=== PATIENT | male | born 1970 | race African-American/Black ===

== ENCOUNTER 2019-02-09 18:49 | Emergency (ER) | payer OTHER ==
--- NOTE | 2019-02-09 20:15 | ER Document Report ---
ED Medical Screen (RME) - General Chief Complaint: Abscess Stated Complaint: BACK PAIN Time Seen by Provider: 02/09/19 20:10 Mode of Arrival: Ambulatory Information source: Patient TRAVEL OUTSIDE OF THE [place] IN LAST 30 DAYS: No - HPI Patient complains to provider of: rectal pain Notes: 02/09/19 20:14 Patient here with complaints of rectal pain. The patient states that he does have a history of hemorrhoids. He had a bowel movement this morning and states he has had some significant pain in his rectal area since. States that he feels like this tender area has been draining some purulent drainage. No blood. No fever. No nausea, vomiting, diarrhea. No abdominal pain. Exam No abdominal tenderness. No distress. Nontoxic-appearing. Difficult to fully examined in triage, but the patient is noted to have a tender mass in the rectal area. Differentials including thrombosed hemorrhoid versus abscess. Plan CBC, CMP. Patient will need better evaluation of this rectal mass in a private room in the back to determine if I&D is needed at this time. An initial examination was made on the patient as part of the triage process, and it was determined a more comprehensive evaluation was necessary. Initial labs were ordered and patient was transferred to another provider in the ED who assumed care and finished evaluation and plan. - Related Data Allergies/Adverse Reactions: WASP Allergy (Uncoded 02/09/19 18:51) Physical Exam - Vital signs Vitals: Temp Pulse Resp BP Pulse Ox 98.3 F 95 16 147/90 H 95 02/09/19 19:17 02/09/19 19:17 02/09/19 19:17 02/09/19 19:17 02/09/19 19:17 Course - Vital Signs Vital signs: Temp Pulse Resp BP Pulse Ox 98.3 F 95 16 147/90 H 95 02/09/19 19:17 02/09/19 19:17 02/09/19 19:17 02/09/19 19:17 02/09/19 19:17
[2019-02-09 20:38] LABS: ABSOLUTE EOSINOPHILS # (AUTO) 0.1 10^3/uL (0.0-0.6); ABSOLUTE LYMPHOCYTES (AUTO) 1.5 10^3/uL (0.5-4.7); ABSOLUTE MONOCYTES (AUTO) 0.7 10^3/uL (0.1-1.4); ABSOLUTE NEUT (AUTO) 6.5 10^3/uL (1.7-8.2); BASOPHILS % (AUTO) 0.4 % (0-2); EOSINOPHILS % (AUTO) 0.7 % (0-6); HEMOGLOBIN 14.4 g/dL (13.5-17.0); LYMPHOCYTES % (AUTO) 16.6 % (13-45); MEAN CORPUSCULAR HEMOGLOBIN 28.8 pg (27.0-33.4); MEAN CORPUSCULAR HGB CONC 34.4 g/dL (32.0-36.0); MEAN CORPUSCULAR VOLUME 84 fl (80-97); MONOCYTES % (AUTO) 8.3 % (3-13); PLATELET COUNT 222 10^3/uL (150-450); RED BLOOD COUNT 5.01 10^6/uL (4.35-5.55); RED CELL DISTRIBUTION WIDTH 14.2 % (11.5-14.0); TOTAL CELLS COUNTED % (AUTO) 100 %; WHITE BLOOD COUNT 8.7 10^3/uL (4.0-10.5)
[2019-02-09 21:00] LABS: ALANINE AMINOTRANSFERASE 49 U/L (21-72); ALBUMIN 4.2 g/dL (3.5-5.0); ALKALINE PHOSPHATASE 93 U/L (38-126); ANION GAP 8 (5-19); ASPARTATE AMINO TRANSFERASE 31 U/L (17-59); BILIRUBIN,DIRECT 0.3 mg/dL (0.0-0.4); BILIRUBIN,TOTAL 0.5 mg/dL (0.2-1.3); BLOOD UREA NITROGEN 14 mg/dL (7-20); CALCIUM 10.2 mg/dL (8.4-10.2); CARBON DIOXIDE 24 mmol/L (22-30); CHLORIDE 106 mmol/L (98-107); GLUCOSE 290 mg/dL (75-110); POTASSIUM 3.7 mmol/L (3.6-5.0); SODIUM 138.3 mmol/L (137-145); TOTAL PROTEIN 7.4 g/dL (6.3-8.2)
--- NOTE | 2019-02-09 22:39 | ER Document Report ---
ED General - General Chief Complaint: Abscess Stated Complaint: BACK PAIN Time Seen by Provider: 02/09/19 20:10 Primary Care Provider: TRISTEN SNYDER MD [ACTIVE STAFF] - Follow up tomorrow Mode of Arrival: Ambulatory Notes: Patient is a 48-year-old male that presents to the emergency department for chief complaint of rectal pain. Patient states that last night he noticed some soreness in his rectum, seem to be a little bit worse this morning, and felt some swelling there. He did try using Preparation H, and a suppository, without much relief so he decided come to the emergency department. Does have a history of internal hemorrhoids in the past. Never anything like this. Denies noting any significant drainage, denies noting any bleeding. Denies fevers, chills, night sweats, nausea, vomiting or abdominal pain. He currently rates his pain as a 1 out of 10 describes it as a soreness and ache near the rectum. Past Medical History: Hemorrhoids, diabetes mellitus, hypertension Past Surgical History: Hernia repair, tonsillectomy Social History: Occasional alcohol use, denies tobacco or drug use. Family History: Reviewed and noncontributory for presenting illness Allergies: Reviewed, see documented allergy list. REVIEW OF SYSTEMS: Other than noted above, the 12 point review of systems was reviewed with the patient and were negative, all pertinent findings are included in the HPI. PHYSICAL EXAMINATION: Vital signs reviewed, nursing noted reviewed. GENERAL: Well-appearing, well-nourished and in no acute distress. HEAD: Atraumatic, normocephalic. EYES: Eyes appear normal, extraocular movements intact, sclera anicteric, conjunctiva are normal. ENT: nares patent, oropharynx clear without exudates. Moist mucous membranes. NECK: Normal range of motion, supple without lymphadenopathy LUNGS: Breath sounds clear to auscultation bilaterally and equal. No wheezes rales or rhonchi. HEART: Regular rate and rhythm without murmurs ABDOMEN: Soft, nontender, normoactive bowel sounds. No rebound, guarding, or rigidity. No masses appreciated. External anal exam: There is a small thrombosed external hemorrhoid, noted in the 3 o'clock position, tenderness to palpate, measures approximately 1 cm in diameter. No other lesions noted. EXTREMITIES: Nontender, good range of motion, no pitting or edema. NEUROLOGICAL: No focal neurological deficits. Moves all extremities spontaneously Motor and sensory grossly intact on exam. PSYCH: Normal mood, normal affect. SKIN: Warm, Dry, normal turgor, no rashes or lesions noted on exposed skin TRAVEL OUTSIDE OF THE [place] IN LAST 30 DAYS: No - Related Data Allergies/Adverse Reactions: WASP Allergy (Uncoded 02/09/19 18:51) Past Medical History - General Information source: Patient - Social History Smoking Status: Never Smoker Family History: Reviewed & Not Pertinent Patient has suicidal ideation: No Patient has homicidal ideation: No Renal/ Medical History: Denies: Hx Peritoneal Dialysis GI Medical History: Reports: Hx Hiatal Hernia Past Surgical History: Reports: Hx Orthopedic Surgery, Hx Tonsillectomy Physical Exam - Vital signs Vitals: Temp Pulse Resp BP Pulse Ox 98.3 F 95 16 147/90 H 95 02/09/19 19:17 02/09/19 19:17 02/09/19 19:17 02/09/19 19:17 02/09/19 19:17 Course - Re-evaluation Re-evalutation: Patient seen and examined, vital signs reviewed, patient noted to have small external hemorrhoid, the rest of his exam is grossly unremarkable. We will have the patient follow-up with surgery, will prescribe Anusol in the meantime, advised sitz baths, patient was agreeable to this plan of care and discharged home. - Vital Signs Vital signs: Temp Pulse Resp BP Pulse Ox 98.5 F 83 16 133/88 H 97 02/09/19 22:18 02/09/19 22:18 02/09/19 22:18 02/09/19 22:18 02/09/19 22:18 - Laboratory Result Diagrams: 02/09/19 20:22 02/09/19 20:22 Laboratory results interpreted by me: 02/09/19 02/09/19 20:22 20:22 RDW 14.2 H Glucose 290 H Discharge - Discharge Clinical Impression: Hemorrhoid Condition: Stable Disposition: HOME, SELF-CARE Instructions: Hemorrhoids ([facility]) Prescriptions: Hydrocortisone [Anusol-Hc] 1 applic RC BID #1 tube Referrals: TRISTEN SNYDRE MD [ACTIVE STAFF] - Follow up tomorrow
[2019-02-09 23:02] VITALS: BP 133/88
== END 2019-02-09 23:15 | disposition home or self-care (01) ==
LOC: ER 18:49
DX: K64.5 Perianal venous thrombosis (principal); E11.9 Type 2 diabetes mellitus without complications; I10 Essential (primary) hypertension; Z91.038 Other insect allergy status
CPT/HCPCS: 36415; 80053; 85025; 99283